=== PATIENT | male | born 1985 | race American Indian/Alaskan Native ===

== ENCOUNTER 2018-09-02 19:17 | Emergency (ER) | payer OTHER ==
[2018-09-02 19:23] VITALS: BP 136/84
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
[2018-09-02] MEDS ORDERED: ULTRAM PO ONE (21:22)
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
== END 2018-09-02 22:38 | disposition home or self-care (01) ==
LOC: ED 19:17
DX: S29.012A Strain of muscle and tendon of back wall of thorax, initial encounter (principal); S16.1XXA Strain of muscle, fascia and tendon at neck level, initial encounter; F17.200 Nicotine dependence, unspecified, uncomplicated; Z79.899 Other long term (current) drug therapy; V89.2XXA Person injured in unspecified motor-vehicle accident, traffic, initial encounter; Y93.89 Activity, other specified; Y92.488 Other paved roadways as the place of occurrence of the external cause; Y99.8 Other external cause status
CPT/HCPCS: 72040; 72100; 99283